=== PATIENT | male | born 1960 | race Caucasian/White ===

== ENCOUNTER 2021-01-31 19:41 | Inpatient (IN) ==
[2021-01-31] MEDS ORDERED: Ringers Solution, Lactated 1,000 ML IVC ONE (20:05)
[2021-01-31 21:10] LABS: Basophils % 0.3 %; Eosinophils % 0.1 %; Hematocrit 30.3 % (37.5-50.1); Hemoglobin 10.2 g/dL (12.9-16.9); Immature Granulocytes % 0.4 % (0-4); Lymphocytes # 2.5 K/mcL (0.6-4.6); Lymphocytes % 16.2 %; Mean Corpuscular HGB Conc 33.7 g/dL (31.6-35.5); Mean Corpuscular Hemoglobin 29.6 pg (28.0-33.3); Mean Corpuscular Volume 87.8 fL (83.0-100.0); Mean Platelet Volume 9.4 fL (9.4-12.4); Monocytes % 6.5 %; Neutrophils # 11.7 K/mcL (1.6-8.9); Platelet Count 267 K/mcL (140-400); Red Blood Count 3.45 M/mcL (4.19-5.50); Red Cell Distribution Width 14.2 % (11.5-14.5); Segmented Neutrophils % 76.5 %; White Blood Count 15.3 K/mcL (4.3-11.1)
[2021-01-31 21:20] LABS: INR 1.2; Prothrombin Time 13.8 Seconds (9.4-12.1)
[2021-01-31 21:33] LABS: Acetaminophen < 10 mcg/mL (10-20); Alanine Aminotransferase 11 Units/L (7-52); Albumin/Globulin Ratio 1.7 (1.1-2.2); Alkaline Phosphatase 53 Units/L (34-104); Aspartate Amino Transferase 15 Units/L (13-39); BUN/Creatinine Ratio 19 (6-26); Bilirubin,Direct 0.1 mg/dL (0.0-0.2); Bilirubin,Indirect 0.4 mg/dL (0.0-1.0); Bilirubin,Total 0.5 mg/dL (0.3-1.0); Blood Urea Nitrogen 18 mg/dL (8-23); Calcium 9.4 mg/dL (8.6-10.3); Carbon Dioxide 21 mEq/L (23-29); Chloride 102 mEq/L (98-107); Ethanol < 10 mg/dL (Less than 10); Globulin 2.3 g/dL (2.4-3.5); Glucose 93 mg/dL (70-105); Lipase 14 Units/L (11-82); Magnesium 1.8 mg/dL (1.6-2.6); Osmolality,Calculated 280 (280-300); Potassium 4.3 mEq/L (3.5-5.1); Salicylate < 2.5 mg/dL (15.0-30.0); Sodium 134 mEq/L (136-145); Total Protein 6.3 g/dL (6.4-8.9); Troponin I < 0.03 ng/mL (< 0.04); eGFR For African Americans > 60 (> 60); eGFR For Non-African Americans > 60 (> 60)
[2021-01-31] MEDS ORDERED: Ringers Solution, Lactated 500 ML IVC ONE (22:31)
[2021-01-31 22:37] LABS: Bilirubin,Urine Negative (Negative); Blood,Urine Negative (Negative); Clarity,Urine Clear (Clear); Color,Urine Yellow (Yellow); Glucose,Urine (UA) Normal (Normal); Granular Casts,Urine Few per lpf (None Seen); Ketones,Urine Trace mg/dL (Negative); Leukocyte Esterase,Urine Negative (Negative); Mucus,Urine Few per lpf (None-Few); Nitrite,Urine Negative (Negative); Protein,Urine 30 mg/dL (Neg-Trace); Specific Gravity,Urine 1.027 (1.010-1.025); Urobilinogen,Urine Normal (Normal); WBC,Urine 0-3 per hpf (0-3)
[2021-01-31 22:40] LABS: Amphetamine Screen,Urine Negative ng/mL (Cutoff=1000); Barbiturate Screen,Urine Negative ng/mL (Cutoff=200); Benzodiazepines Screen,Urine Negative ng/mL (Cutoff=200); Cannabinoid Screen,Urine Negative ng/mL (Cutoff = 50); Cocaine Screen,Urine Negative ng/mL (Cutoff= 300); Opiate Screen,Urine Negative ng/mL (Cutoff=300); Phencyclidine Screen,Urine Negative ng/mL (Cutoff=25)
[2021-01-31] MEDS ORDERED: Piperacillin/Tazobactam 3.375 GM in Water for inj. (sterile) 20 ML IVP ONE (23:00)
[2021-01-31] MEDS ORDERED: Vancomycin 1,500 MG/265 ML IV.SOLN IVPB ONE (23:00)
[2021-01-31 23:22] LABS: Adenovirus Not Detected (Not Detect); Bordetella Pertussis Not Detected (Not Detect); Chlamydophila pneumoniae Not Detected (Not Detect); Coronavirus 229E Not Detected (Not Detect); Coronavirus HKU1 Not Detected (Not Detect); Coronavirus NL63 Not Detected (Not Detect); Coronavirus OC43 Not Detected (Not Detect); Human Metapneumovirus Not Detected (Not Detect); Human Rhinovirus/Enterovirus Not Detected (Not Detect); Influenza A Subtype 2009 H1 Not Detected (Not Detect); Influenza B Not Detected (Not Detect); Mycoplasma pneumoniae Not Detected (Not Detect); Parainfluenza Virus 1 Not Detected (Not Detect); Parainfluenza Virus 2 Not Detected (Not Detect); Parainfluenza Virus 3 Not Detected (Not Detect); Parainfluenza Virus 4 Not Detected (Not Detect); Respiratory Syncytial Virus Not Detected (Not Detect); SARS-CoV-2 Not Detected (Not Detect)
[2021-02-01] MEDS ORDERED: Ondansetron 4 MG/2 ML VIAL IVP PRN (00:43)
[2021-02-01] MEDS ORDERED: Naloxone 0.4 MG/ML INJ IVP PRN (00:43)
[2021-02-01] MEDS ORDERED: Melatonin 3 MG TABLET PO PRN (00:43)
[2021-02-01] MEDS ORDERED: 0.9 % Sodium Chloride 1,000 ML IVC ONE (06:57)
[2021-02-01 07:15] LABS: Basophils % 0.4 %; Eosinophils % 0.5 %; Hematocrit 25.1 % (37.5-50.1); Hemoglobin 8.2 g/dL (12.9-16.9); Immature Granulocytes % 0.4 % (0-4); Lymphocytes # 2.1 K/mcL (0.6-4.6); Lymphocytes % 26.9 %; Mean Corpuscular HGB Conc 32.7 g/dL (31.6-35.5); Mean Corpuscular Hemoglobin 28.8 pg (28.0-33.3); Mean Corpuscular Volume 88.1 fL (83.0-100.0); Mean Platelet Volume 9.3 fL (9.4-12.4); Monocytes # 0.7 K/mcL (0.0-1.3); Monocytes % 8.8 %; Nucleated Red Blood Cells 0.3 /100 WBC (0); Platelet Count 192 K/mcL (140-400); Red Blood Count 2.85 M/mcL (4.19-5.50); Red Cell Distribution Width 14.2 % (11.5-14.5); White Blood Count 7.9 K/mcL (4.3-11.1)
[2021-02-01 09:56] LABS: Alanine Aminotransferase 9 Units/L (7-52); Albumin 3.4 g/dL (3.5-5.7); Albumin/Globulin Ratio 1.9 (1.1-2.2); Alkaline Phosphatase 43 Units/L (34-104); Aspartate Amino Transferase 15 Units/L (13-39); BUN/Creatinine Ratio 17 (6-26); Bilirubin,Total 0.4 mg/dL (0.3-1.0); Blood Urea Nitrogen 15 mg/dL (8-23); Calcium 8.4 mg/dL (8.6-10.3); Carbon Dioxide 22 mEq/L (23-29); Chloride 104 mEq/L (98-107); Globulin 1.8 g/dL (2.4-3.5); Glucose 100 mg/dL (70-105); Osmolality,Calculated 279 (280-300); Phosphorous 2.7 mg/dL (2.7-4.5); Potassium 3.5 mEq/L (3.5-5.1); Sodium 134 mEq/L (136-145); Total Protein 5.2 g/dL (6.4-8.9); eGFR For African Americans > 60 (> 60); eGFR For Non-African Americans > 60 (> 60)
[2021-02-01] MEDS ORDERED: Artificial Tears SOLN 15 ML BOTTLE BOTH EYES PRN (13:49)
[2021-02-01] MEDS ORDERED: NON-FORMULARY MEDICATION 1 EACH EACH (Ipratropium Bromide 15 ML Spray) SL SCH (21:00)
[2021-02-01] MEDS: polyethylene glycoL 3350 17 GM POWD.PACK PO SCH (21:53)
[2021-02-01] MEDS: Melatonin 3 MG TABLET PO SCH (21:53)
[2021-02-01] MEDS: Metoprolol XL (24 HR) Succ 25 MG TAB.ER.24H PO SCH (21:53)
[2021-02-01] MEDS: lamoTRIgine 100 MG TABLET PO SCH (21:54)
[2021-02-01] MEDS: lamoTRIgine 25 MG TABLET PO SCH (21:56)
[2021-02-01] MEDS: Artificial Tears SOLN 15 ML BOTTLE BOTH EYES SCH (21:56)
[2021-02-01] MEDS: Sennosides/Docusate Sodium TABLET PO SCH (21:57)
[2021-02-01] MEDS: cloZAPine 100 MG TABLET PO SCH (22:10)
[2021-02-02] MEDS ORDERED: Atropine 1% Opth Drops 100 DROP/5 ML BOTTLE SL PRN (02:15)
[2021-02-02] MEDS ORDERED: Tiotropium 10 INH DOSE IH ONE (07:21)
[2021-02-02] MEDS ORDERED: *HR* Metformin 500 MG TABLET PO SCH (08:00)
[2021-02-02] MEDS: Tiotropium 10 INH DOSE IH SCH (08:00)
[2021-02-02 08:10] LABS: BUN/Creatinine Ratio 18 (6-26); Blood Urea Nitrogen 16 mg/dL (8-23); Calcium 8.6 mg/dL (8.6-10.3); Carbon Dioxide 27 mEq/L (23-29); Chloride 105 mEq/L (98-107); Glucose 105 mg/dL (70-105); Osmolality,Calculated 282 (280-300); Potassium 4.2 mEq/L (3.5-5.1); Sodium 135 mEq/L (136-145); eGFR For African Americans > 60 (> 60); eGFR For Non-African Americans > 60 (> 60)
[2021-02-02 09:48] LABS: Hematocrit 22.1 % (37.5-50.1); Hemoglobin 7.3 g/dL (12.9-16.9); Mean Corpuscular Hemoglobin 29.6 pg (28.0-33.3); Mean Corpuscular Volume 89.5 fL (83.0-100.0); Mean Platelet Volume 9.8 fL (9.4-12.4); Platelet Count 166 K/mcL (140-400); Red Blood Count 2.47 M/mcL (4.19-5.50); Red Cell Distribution Width 14.3 % (11.5-14.5)
[2021-02-02] MEDS: Magnesium Oxide 400 MG TABLET PO SCH (10:03)
[2021-02-02] MEDS: Sennosides/Docusate Sodium TABLET PO SCH ×2 (10:03→20:21)
[2021-02-02] MEDS: Cholecalciferol (D-3) 1,000 UNIT (25MCG) TABLET PO SCH (10:03)
[2021-02-02] MEDS: polyethylene glycoL 3350 17 GM POWD.PACK PO SCH (10:03)
[2021-02-02] MEDS: cloZAPine 100 MG TABLET PO SCH ×2 (10:03→20:22)
[2021-02-02] MEDS: Artificial Tears SOLN 15 ML BOTTLE BOTH EYES SCH ×2 (10:07→20:29)
[2021-02-02] MEDS: Acetaminophen 325 MG TABLET PO PRN (10:36)
[2021-02-02] MEDS ORDERED: Dextrose Gel 15 GM/37.5 ML TUBE PO PRN ×2 (13:27)
[2021-02-02] MEDS ORDERED: D5% in Water 1,000 ML IVC PRN (13:27)
[2021-02-02] MEDS ORDERED: *HR* Dextrose 50 % in Water (Vial) 50 ML VIAL IVP PRN (13:27)
[2021-02-02] MEDS ORDERED: Tdap (Boostrix) Vaccine 0.5 ML SYRINGE IM ONE (13:32)
[2021-02-02 14:00] LABS: Basophils % 0.6 %; Eosinophils # 0.1 K/mcL (0.0-0.6); Eosinophils % 1.4 %; Hematocrit 21.8 % (37.5-50.1); Immature Granulocytes % 0.2 % (0-4); Lymphocytes % 40.3 %; Mean Corpuscular HGB Conc 32.1 g/dL (31.6-35.5); Mean Corpuscular Hemoglobin 28.7 pg (28.0-33.3); Mean Corpuscular Volume 89.3 fL (83.0-100.0); Mean Platelet Volume 9.4 fL (9.4-12.4); Monocytes # 0.5 K/mcL (0.0-1.3); Neutrophils # 2.4 K/mcL (1.6-8.9); Platelet Count 160 K/mcL (140-400); Red Blood Count 2.44 M/mcL (4.19-5.50); Red Cell Distribution Width 14.4 % (11.5-14.5); Segmented Neutrophils % 47.5 %
[2021-02-02] MEDS ORDERED: 0.9 % Sodium Chloride 250 ML IVC SCH (14:45)
[2021-02-02 15:27] LABS: Estimated Average Glucose 123 mg/dl; Hemoglobin A1C 5.9 %
[2021-02-02] MEDS: Insulin LISPRO 300 UNITS/3 ML VIAL SUBQ SCH ×2 (17:49→20:27)
[2021-02-02] MEDS: Metoprolol XL (24 HR) Succ 25 MG TAB.ER.24H PO SCH (17:49)
[2021-02-02] MEDS: Melatonin 3 MG TABLET PO SCH (20:23)
[2021-02-02] MEDS: lamoTRIgine 25 MG TABLET PO SCH (20:24)
[2021-02-02] MEDS: lamoTRIgine 100 MG TABLET PO SCH (20:26)
[2021-02-03 01:52] LABS: Hematocrit 23.7 % (37.5-50.1); Hemoglobin 7.8 g/dL (12.9-16.9); Mean Corpuscular HGB Conc 32.9 g/dL (31.6-35.5); Mean Corpuscular Hemoglobin 29.1 pg (28.0-33.3); Mean Corpuscular Volume 88.4 fL (83.0-100.0); Mean Platelet Volume 9.5 fL (9.4-12.4); Platelet Count 180 K/mcL (140-400); Red Blood Count 2.68 M/mcL (4.19-5.50); Red Cell Distribution Width 14.3 % (11.5-14.5); White Blood Count 6.4 K/mcL (4.3-11.1)
[2021-02-03 02:16] LABS: BUN/Creatinine Ratio 17 (6-26); Blood Urea Nitrogen 13 mg/dL (8-23); Calcium 8.7 mg/dL (8.6-10.3); Carbon Dioxide 25 mEq/L (23-29); Chloride 108 mEq/L (98-107); Glucose 112 mg/dL (70-105); Osmolality,Calculated 285 (280-300); Potassium 4.3 mEq/L (3.5-5.1); Sodium 137 mEq/L (136-145); eGFR For African Americans > 60 (> 60); eGFR For Non-African Americans > 60 (> 60)
[2021-02-03] MEDS: Tiotropium 10 INH DOSE IH SCH (07:27)
[2021-02-03] MEDS: Insulin LISPRO 300 UNITS/3 ML VIAL SUBQ SCH ×4 (07:54→20:46)
[2021-02-03] MEDS: Magnesium Oxide 400 MG TABLET PO SCH (08:57)
[2021-02-03] MEDS: Cholecalciferol (D-3) 1,000 UNIT (25MCG) TABLET PO SCH (08:57)
[2021-02-03] MEDS: Sennosides/Docusate Sodium TABLET PO SCH ×2 (08:57→20:35)
[2021-02-03] MEDS: cloZAPine 100 MG TABLET PO SCH (08:57)
[2021-02-03] MEDS: Artificial Tears SOLN 15 ML BOTTLE BOTH EYES SCH ×2 (08:58→20:38)
[2021-02-03] MEDS: Metoprolol XL (24 HR) Succ 25 MG TAB.ER.24H PO SCH (17:41)
[2021-02-03] MEDS: lamoTRIgine 100 MG TABLET PO SCH (20:36)
[2021-02-03] MEDS: Acetaminophen 325 MG TABLET PO PRN (20:37)
[2021-02-03] MEDS: lamoTRIgine 25 MG TABLET PO SCH (20:37)
[2021-02-03] MEDS: Melatonin 3 MG TABLET PO SCH (20:38)
[2021-02-04 07:16] LABS: Basophils % 0.6 %; Eosinophils # 0.1 K/mcL (0.0-0.6); Eosinophils % 1.7 %; Hematocrit 25.6 % (37.5-50.1); Hemoglobin 8.3 g/dL (12.9-16.9); Immature Granulocytes % 0.3 % (0-4); Lymphocytes # 1.9 K/mcL (0.6-4.6); Lymphocytes % 26.1 %; Mean Corpuscular HGB Conc 32.4 g/dL (31.6-35.5); Mean Corpuscular Volume 89.5 fL (83.0-100.0); Mean Platelet Volume 9.8 fL (9.4-12.4); Monocytes # 0.6 K/mcL (0.0-1.3); Monocytes % 8.1 %; Neutrophils # 4.5 K/mcL (1.6-8.9); Platelet Count 231 K/mcL (140-400); Red Blood Count 2.86 M/mcL (4.19-5.50); Red Cell Distribution Width 14.7 % (11.5-14.5); Segmented Neutrophils % 63.2 %; White Blood Count 7.2 K/mcL (4.3-11.1)
[2021-02-04] MEDS: Insulin LISPRO 300 UNITS/3 ML VIAL SUBQ SCH ×4 (09:01→21:08)
[2021-02-04] MEDS: Cholecalciferol (D-3) 1,000 UNIT (25MCG) TABLET PO SCH (09:02)
[2021-02-04] MEDS: Sennosides/Docusate Sodium TABLET PO SCH ×2 (09:02→20:58)
[2021-02-04] MEDS: Magnesium Oxide 400 MG TABLET PO SCH (09:03)
[2021-02-04] MEDS: Artificial Tears SOLN 15 ML BOTTLE BOTH EYES SCH ×2 (09:04→20:57)
[2021-02-04] MEDS: Acetaminophen 325 MG TABLET PO PRN ×3 (09:11→20:58)
[2021-02-04] MEDS: Tiotropium 10 INH DOSE IH SCH (09:44)
[2021-02-04] MEDS: Metoprolol XL (24 HR) Succ 25 MG TAB.ER.24H PO SCH (18:22)
[2021-02-04] MEDS: lamoTRIgine 100 MG TABLET PO SCH (20:57)
[2021-02-04] MEDS: Melatonin 3 MG TABLET PO SCH (20:59)
[2021-02-04] MEDS: lamoTRIgine 25 MG TABLET PO SCH (20:59)
[2021-02-05 06:41] LABS: Hematocrit 25.8 % (37.5-50.1); Hemoglobin 8.2 g/dL (12.9-16.9); Mean Corpuscular HGB Conc 31.8 g/dL (31.6-35.5); Mean Corpuscular Hemoglobin 28.7 pg (28.0-33.3); Mean Corpuscular Volume 90.2 fL (83.0-100.0); Mean Platelet Volume 9.8 fL (9.4-12.4); Platelet Count 244 K/mcL (140-400); Red Blood Count 2.86 M/mcL (4.19-5.50); Red Cell Distribution Width 14.6 % (11.5-14.5); White Blood Count 7.2 K/mcL (4.3-11.1)
[2021-02-05] MEDS: Tiotropium 10 INH DOSE IH SCH (07:29)
[2021-02-05] MEDS ORDERED: 0.9 % Sodium Chloride 250 ML IVC SCH (07:45)
[2021-02-05] MEDS: Insulin LISPRO 300 UNITS/3 ML VIAL SUBQ SCH ×4 (08:30→22:31)
[2021-02-05] MEDS: Magnesium Oxide 400 MG TABLET PO SCH (09:43)
[2021-02-05] MEDS: Cholecalciferol (D-3) 1,000 UNIT (25MCG) TABLET PO SCH (09:43)
[2021-02-05] MEDS: Artificial Tears SOLN 15 ML BOTTLE BOTH EYES SCH ×2 (09:44→22:31)
[2021-02-05] MEDS: Sennosides/Docusate Sodium TABLET PO SCH ×2 (09:50→22:30)
[2021-02-05] MEDS: Metoprolol XL (24 HR) Succ 25 MG TAB.ER.24H PO SCH (16:48)
[2021-02-05] MEDS ORDERED: 0.9 % Sodium Chloride 250 ML ONE (22:23)
[2021-02-05] MEDS: lamoTRIgine 100 MG TABLET PO SCH (22:27)
[2021-02-05] MEDS: Melatonin 3 MG TABLET PO SCH (22:30)
[2021-02-05] MEDS: lamoTRIgine 25 MG TABLET PO SCH (22:30)
[2021-02-06 03:17] LABS: Hematocrit 28.2 % (37.5-50.1); Hemoglobin 9.6 g/dL (12.9-16.9); Mean Corpuscular Volume 88.1 fL (83.0-100.0); Mean Platelet Volume 9.4 fL (9.4-12.4); Platelet Count 255 K/mcL (140-400); White Blood Count 9.2 K/mcL (4.3-11.1)
[2021-02-06] MEDS: Tiotropium 10 INH DOSE IH SCH (07:31)
[2021-02-06] MEDS: Artificial Tears SOLN 15 ML BOTTLE BOTH EYES SCH ×2 (08:39→20:08)
[2021-02-06] MEDS: Sennosides/Docusate Sodium TABLET PO SCH ×2 (08:39→20:09)
[2021-02-06] MEDS: Insulin LISPRO 300 UNITS/3 ML VIAL SUBQ SCH ×4 (08:39→20:10)
[2021-02-06] MEDS: Magnesium Oxide 400 MG TABLET PO SCH (08:39)
[2021-02-06] MEDS: Cholecalciferol (D-3) 1,000 UNIT (25MCG) TABLET PO SCH (08:39)
[2021-02-06] MEDS: Metoprolol XL (24 HR) Succ 25 MG TAB.ER.24H PO SCH (18:11)
[2021-02-06] MEDS: Melatonin 3 MG TABLET PO SCH (20:09)
[2021-02-06] MEDS: lamoTRIgine 100 MG TABLET PO SCH (20:09)
[2021-02-06] MEDS: lamoTRIgine 25 MG TABLET PO SCH (20:10)
[2021-02-07] MEDS: hydrOXYzine pamoate 25 MG CAPSULE PO PRN (05:26)
[2021-02-07 06:47] LABS: Hematocrit 30.1 % (37.5-50.1); Hemoglobin 9.7 g/dL (12.9-16.9); Mean Corpuscular HGB Conc 32.2 g/dL (31.6-35.5); Mean Corpuscular Hemoglobin 28.7 pg (28.0-33.3); Mean Corpuscular Volume 89.1 fL (83.0-100.0); Mean Platelet Volume 9.6 fL (9.4-12.4); Platelet Count 312 K/mcL (140-400); Red Blood Count 3.38 M/mcL (4.19-5.50); White Blood Count 11.3 K/mcL (4.3-11.1)
[2021-02-07 07:32] LABS: Influenza A PCR Negative (Negative); Influenza B PCR Negative (Negative); Resp. Syncytial Virus PCR Negative (Negative)
[2021-02-07] MEDS: Tiotropium 10 INH DOSE IH SCH (07:35)
[2021-02-07 08:00] LABS: BUN/Creatinine Ratio 23 (6-26); Blood Urea Nitrogen 19 mg/dL (8-23); Calcium 9.1 mg/dL (8.6-10.3); Carbon Dioxide 25 mEq/L (23-29); Chloride 101 mEq/L (98-107); Glucose 107 mg/dL (70-105); Osmolality,Calculated 279 (280-300); Potassium 4.5 mEq/L (3.5-5.1); Sodium 133 mEq/L (136-145); eGFR For African Americans > 60 (> 60); eGFR For Non-African Americans > 60 (> 60)
[2021-02-07] MEDS: Insulin LISPRO 300 UNITS/3 ML VIAL SUBQ SCH ×4 (08:46→21:59)
[2021-02-07] MEDS: Cholecalciferol (D-3) 1,000 UNIT (25MCG) TABLET PO SCH (08:50)
[2021-02-07] MEDS: Magnesium Oxide 400 MG TABLET PO SCH (08:50)
[2021-02-07] MEDS: Sennosides/Docusate Sodium TABLET PO SCH ×2 (08:50→22:08)
[2021-02-07] MEDS: Artificial Tears SOLN 15 ML BOTTLE BOTH EYES SCH ×2 (08:50→22:08)
[2021-02-07 14:41] LABS: SARS-CoV-2 by PCR (In House) Negative (Negative)
[2021-02-07] MEDS: Metoprolol XL (24 HR) Succ 25 MG TAB.ER.24H PO SCH (16:59)
[2021-02-07] MEDS: lamoTRIgine 100 MG TABLET PO SCH (22:07)
[2021-02-07] MEDS: Melatonin 3 MG TABLET PO SCH (22:08)
[2021-02-07] MEDS: lamoTRIgine 25 MG TABLET PO SCH (22:08)
[2021-02-08] MEDS ORDERED: *HR* LORazepam 2 MG/ML VIAL IVP ONE (05:22)
[2021-02-08] MEDS: Sennosides/Docusate Sodium TABLET PO SCH ×2 (07:32→21:21)
[2021-02-08] MEDS: Cholecalciferol (D-3) 1,000 UNIT (25MCG) TABLET PO SCH (07:32)
[2021-02-08] MEDS: Magnesium Oxide 400 MG TABLET PO SCH (07:32)
[2021-02-08] MEDS: Insulin LISPRO 300 UNITS/3 ML VIAL SUBQ SCH ×4 (07:36→21:23)
[2021-02-08] MEDS: Artificial Tears SOLN 15 ML BOTTLE BOTH EYES SCH ×2 (07:39→21:23)
[2021-02-08] MEDS: Tiotropium 10 INH DOSE IH SCH (07:39)
[2021-02-08 07:43] LABS: Hematocrit 28.7 % (37.5-50.1); Hemoglobin 9.3 g/dL (12.9-16.9); Mean Corpuscular HGB Conc 32.4 g/dL (31.6-35.5); Mean Corpuscular Hemoglobin 28.6 pg (28.0-33.3); Mean Corpuscular Volume 88.3 fL (83.0-100.0); Mean Platelet Volume 9.5 fL (9.4-12.4); Platelet Count 292 K/mcL (140-400); Red Blood Count 3.25 M/mcL (4.19-5.50); Red Cell Distribution Width 13.8 % (11.5-14.5); White Blood Count 10.1 K/mcL (4.3-11.1)
[2021-02-08 07:59] LABS: BUN/Creatinine Ratio 26 (6-26); Blood Urea Nitrogen 22 mg/dL (8-23); Carbon Dioxide 25 mEq/L (23-29); Chloride 102 mEq/L (98-107); Glucose 114 mg/dL (70-105); Osmolality,Calculated 280 (280-300); Potassium 4.4 mEq/L (3.5-5.1); Sodium 133 mEq/L (136-145); eGFR For African Americans > 60 (> 60); eGFR For Non-African Americans > 60 (> 60)
[2021-02-08] MEDS ORDERED: OLANZapine 10 MG TAB.RAPDIS PO ONE (11:03)
[2021-02-08] MEDS: Acetaminophen 325 MG TABLET PO PRN (12:57)
[2021-02-08] MEDS: Metoprolol XL (24 HR) Succ 25 MG TAB.ER.24H PO SCH (17:39)
[2021-02-08 18:03] LABS: Bilirubin,Urine Negative (Negative); Blood,Urine Negative (Negative); Clarity,Urine Clear (Clear); Color,Urine Yellow (Yellow); Glucose,Urine (UA) Normal (Normal); Ketones,Urine Negative (Negative); Leukocyte Esterase,Urine Negative (Negative); Nitrite,Urine Negative (Negative); PH,Urine 6.5 pH Units (5.0-8.0); Protein,Urine Trace mg/dL (Neg-Trace); Specific Gravity,Urine 1.026 (1.010-1.025); Urobilinogen,Urine Normal (Normal)
[2021-02-08] MEDS: Melatonin 3 MG TABLET PO SCH (21:22)
[2021-02-08] MEDS: lamoTRIgine 100 MG TABLET PO SCH (21:22)
[2021-02-08] MEDS: lamoTRIgine 25 MG TABLET PO SCH (21:22)
[2021-02-08] MEDS: OLANZapine 10 MG TAB.RAPDIS PO SCH (21:22)
[2021-02-09] MEDS: hydrOXYzine pamoate 25 MG CAPSULE PO PRN (04:15)
[2021-02-09] MEDS: Insulin LISPRO 300 UNITS/3 ML VIAL SUBQ SCH ×4 (07:48→22:50)
[2021-02-09] MEDS: Magnesium Oxide 400 MG TABLET PO SCH (08:21)
[2021-02-09] MEDS: Sennosides/Docusate Sodium TABLET PO SCH ×2 (08:21→22:50)
[2021-02-09] MEDS: Cholecalciferol (D-3) 1,000 UNIT (25MCG) TABLET PO SCH (08:21)
[2021-02-09] MEDS: OLANZapine 10 MG TAB.RAPDIS PO SCH ×2 (08:22→22:50)
[2021-02-09] MEDS: Artificial Tears SOLN 15 ML BOTTLE BOTH EYES SCH ×2 (08:22→22:49)
[2021-02-09] MEDS: Tiotropium 10 INH DOSE IH SCH (10:59)
[2021-02-09] MEDS: Metoprolol XL (24 HR) Succ 25 MG TAB.ER.24H PO SCH (16:55)
[2021-02-09] MEDS: lamoTRIgine 25 MG TABLET PO SCH (22:48)
[2021-02-09] MEDS: lamoTRIgine 100 MG TABLET PO SCH (22:49)
[2021-02-09] MEDS: Melatonin 3 MG TABLET PO SCH (22:49)
[2021-02-10 03:39] LABS: Hematocrit 27.8 % (37.5-50.1); Hemoglobin 9.5 g/dL (12.9-16.9); Mean Corpuscular HGB Conc 34.2 g/dL (31.6-35.5); Mean Corpuscular Hemoglobin 29.6 pg (28.0-33.3); Mean Corpuscular Volume 86.6 fL (83.0-100.0); Mean Platelet Volume 9.3 fL (9.4-12.4); Platelet Count 342 K/mcL (140-400); Red Blood Count 3.21 M/mcL (4.19-5.50); Red Cell Distribution Width 13.4 % (11.5-14.5); White Blood Count 8.8 K/mcL (4.3-11.1)
[2021-02-10 03:58] LABS: BUN/Creatinine Ratio 28 (6-26); Blood Urea Nitrogen 23 mg/dL (8-23); Carbon Dioxide 24 mEq/L (23-29); Chloride 102 mEq/L (98-107); Glucose 128 mg/dL (70-105); Osmolality,Calculated 281 (280-300); Potassium 4.2 mEq/L (3.5-5.1); Sodium 133 mEq/L (136-145); eGFR For African Americans > 60 (> 60); eGFR For Non-African Americans > 60 (> 60)
[2021-02-10] MEDS: Cholecalciferol (D-3) 1,000 UNIT (25MCG) TABLET PO SCH (08:23)
[2021-02-10] MEDS: Magnesium Oxide 400 MG TABLET PO SCH (08:24)
[2021-02-10] MEDS: Sennosides/Docusate Sodium TABLET PO SCH ×2 (08:24→20:17)
[2021-02-10] MEDS: OLANZapine 10 MG TAB.RAPDIS PO SCH ×2 (08:24→20:16)
[2021-02-10] MEDS: Artificial Tears SOLN 15 ML BOTTLE BOTH EYES SCH ×2 (08:25→20:21)
[2021-02-10] MEDS: Insulin LISPRO 300 UNITS/3 ML VIAL SUBQ SCH ×4 (08:32→20:18)
[2021-02-10] MEDS: Tiotropium 10 INH DOSE IH SCH (11:44)
[2021-02-10] MEDS: Metoprolol XL (24 HR) Succ 25 MG TAB.ER.24H PO SCH (16:56)
[2021-02-10] MEDS: lamoTRIgine 100 MG TABLET PO SCH (20:16)
[2021-02-10] MEDS: lamoTRIgine 25 MG TABLET PO SCH (20:17)
[2021-02-10] MEDS: Melatonin 3 MG TABLET PO SCH (20:17)
[2021-02-10] MEDS: hydrOXYzine pamoate 25 MG CAPSULE PO PRN (21:55)
[2021-02-11 06:02] LABS: Hematocrit 29.5 % (37.5-50.1); Hemoglobin 9.5 g/dL (12.9-16.9); Mean Corpuscular HGB Conc 32.2 g/dL (31.6-35.5); Mean Corpuscular Hemoglobin 28.4 pg (28.0-33.3); Mean Corpuscular Volume 88.3 fL (83.0-100.0); Mean Platelet Volume 9.3 fL (9.4-12.4); Platelet Count 311 K/mcL (140-400); Red Blood Count 3.34 M/mcL (4.19-5.50); Red Cell Distribution Width 13.6 % (11.5-14.5); White Blood Count 7.4 K/mcL (4.3-11.1)
[2021-02-11] MEDS: Sennosides/Docusate Sodium TABLET PO SCH ×2 (07:13→19:48)
[2021-02-11] MEDS: Cholecalciferol (D-3) 1,000 UNIT (25MCG) TABLET PO SCH (07:13)
[2021-02-11] MEDS: Magnesium Oxide 400 MG TABLET PO SCH (07:13)
[2021-02-11] MEDS: OLANZapine 10 MG TAB.RAPDIS PO SCH ×2 (07:14→19:49)
[2021-02-11] MEDS: Artificial Tears SOLN 15 ML BOTTLE BOTH EYES SCH ×2 (07:16→19:52)
[2021-02-11] MEDS: Insulin LISPRO 300 UNITS/3 ML VIAL SUBQ SCH ×4 (07:19→20:03)
[2021-02-11] MEDS: Tiotropium 10 INH DOSE IH SCH (09:47)
[2021-02-11] MEDS: Metoprolol XL (24 HR) Succ 25 MG TAB.ER.24H PO SCH (17:23)
[2021-02-11] MEDS: lamoTRIgine 100 MG TABLET PO SCH (19:48)
[2021-02-11] MEDS: lamoTRIgine 25 MG TABLET PO SCH (19:48)
[2021-02-11] MEDS: Melatonin 3 MG TABLET PO SCH (19:48)
[2021-02-12] MEDS: Tiotropium 10 INH DOSE IH SCH (08:11)
[2021-02-12] MEDS: Sennosides/Docusate Sodium TABLET PO SCH ×2 (08:49→19:32)
[2021-02-12] MEDS: Cholecalciferol (D-3) 1,000 UNIT (25MCG) TABLET PO SCH (08:49)
[2021-02-12] MEDS: Magnesium Oxide 400 MG TABLET PO SCH (08:49)
[2021-02-12] MEDS: Artificial Tears SOLN 15 ML BOTTLE BOTH EYES SCH ×2 (08:49→19:37)
[2021-02-12] MEDS: OLANZapine 10 MG TAB.RAPDIS PO SCH ×2 (08:50→19:32)
[2021-02-12] MEDS: Insulin LISPRO 300 UNITS/3 ML VIAL SUBQ SCH ×4 (08:51→19:40)
[2021-02-12] MEDS: Metoprolol XL (24 HR) Succ 25 MG TAB.ER.24H PO SCH (17:09)
[2021-02-12] MEDS: Melatonin 3 MG TABLET PO SCH (19:32)
[2021-02-12] MEDS: lamoTRIgine 25 MG TABLET PO SCH (19:32)
[2021-02-12] MEDS: lamoTRIgine 100 MG TABLET PO SCH (19:32)
[2021-02-13] MEDS: Tiotropium 10 INH DOSE IH SCH (07:37)
[2021-02-13] MEDS: Insulin LISPRO 300 UNITS/3 ML VIAL SUBQ SCH ×4 (09:28→20:57)
[2021-02-13] MEDS: Cholecalciferol (D-3) 1,000 UNIT (25MCG) TABLET PO SCH (11:22)
[2021-02-13] MEDS: Sennosides/Docusate Sodium TABLET PO SCH ×2 (11:24→20:49)
[2021-02-13] MEDS: Magnesium Oxide 400 MG TABLET PO SCH (11:25)
[2021-02-13] MEDS: OLANZapine 10 MG TAB.RAPDIS PO SCH ×2 (11:25→20:50)
[2021-02-13] MEDS: Artificial Tears SOLN 15 ML BOTTLE BOTH EYES SCH (11:31)
[2021-02-13] MEDS ORDERED: OLANZapine 10 MG TAB.RAPDIS PO ONE (13:47)
[2021-02-13] MEDS: Metoprolol XL (24 HR) Succ 25 MG TAB.ER.24H PO SCH (17:25)
[2021-02-13] MEDS: Melatonin 3 MG TABLET PO SCH (20:49)
[2021-02-13] MEDS: lamoTRIgine 25 MG TABLET PO SCH (20:49)
[2021-02-13] MEDS: lamoTRIgine 100 MG TABLET PO SCH (20:50)
[2021-02-14] MEDS: Insulin LISPRO 300 UNITS/3 ML VIAL SUBQ SCH ×4 (09:18→21:07)
[2021-02-14] MEDS: Sennosides/Docusate Sodium TABLET PO SCH ×2 (09:58→21:07)
[2021-02-14] MEDS: OLANZapine 10 MG TAB.RAPDIS PO SCH ×2 (09:59→21:06)
[2021-02-14] MEDS: Cholecalciferol (D-3) 1,000 UNIT (25MCG) TABLET PO SCH (09:59)
[2021-02-14] MEDS: Magnesium Oxide 400 MG TABLET PO SCH (09:59)
[2021-02-14] MEDS: Tiotropium 10 INH DOSE IH SCH (10:45)
[2021-02-14] MEDS: Acetaminophen 325 MG TABLET PO PRN (13:42)
[2021-02-14] MEDS: hydrOXYzine pamoate 25 MG CAPSULE PO PRN (14:22)
[2021-02-14] MEDS: Metoprolol XL (24 HR) Succ 25 MG TAB.ER.24H PO SCH (17:18)
[2021-02-14] MEDS: lamoTRIgine 25 MG TABLET PO SCH (21:06)
[2021-02-14] MEDS: Melatonin 3 MG TABLET PO SCH (21:06)
[2021-02-14] MEDS: lamoTRIgine 100 MG TABLET PO SCH (21:06)
[2021-02-15] MEDS: hydrOXYzine pamoate 25 MG CAPSULE PO PRN (01:40)
[2021-02-15] MEDS: Tiotropium 10 INH DOSE IH SCH (07:27)
[2021-02-15] MEDS: Insulin LISPRO 300 UNITS/3 ML VIAL SUBQ SCH (07:53)
[2021-02-15] MEDS: Sennosides/Docusate Sodium TABLET PO SCH (08:09)
[2021-02-15] MEDS: Magnesium Oxide 400 MG TABLET PO SCH (08:10)
[2021-02-15] MEDS: Cholecalciferol (D-3) 1,000 UNIT (25MCG) TABLET PO SCH (08:10)
[2021-02-15] MEDS: OLANZapine 10 MG TAB.RAPDIS PO SCH (08:10)
[2021-02-15 09:34] LABS: Adenovirus Not Detected (Not Detect); Bordetella Pertussis Not Detected (Not Detect); Chlamydophila pneumoniae Not Detected (Not Detect); Coronavirus 229E Not Detected (Not Detect); Coronavirus HKU1 Not Detected (Not Detect); Coronavirus NL63 Not Detected (Not Detect); Coronavirus OC43 Not Detected (Not Detect); Human Metapneumovirus Not Detected (Not Detect); Human Rhinovirus/Enterovirus Not Detected (Not Detect); Influenza A Subtype 2009 H1 Not Detected (Not Detect); Influenza B Not Detected (Not Detect); Mycoplasma pneumoniae Not Detected (Not Detect); Parainfluenza Virus 1 Not Detected (Not Detect); Parainfluenza Virus 2 Not Detected (Not Detect); Parainfluenza Virus 3 Not Detected (Not Detect); Parainfluenza Virus 4 Not Detected (Not Detect); Respiratory Syncytial Virus Not Detected (Not Detect); SARS-CoV-2 Not Detected (Not Detect)
[2021-02-15 10:40] VITALS: BP 133/85; PULSE 83; TEMP 98.1; O2SAT 99
== END 2021-02-15 10:50 | DRG 885 ==
LOC: 2NENU 19:41 → EMEROOARM 19:41 → 2NENU 02-01 01:08 → SUATTDRO 02-01 15:10 → 3NENU 02-10 21:48
PROVIDERS: ADMIT Family Medicine; ATTEND Internal Medicine

== ENCOUNTER 2021-03-22 13:54 | Inpatient (IN) ==
[2021-03-22 14:47] LABS: Amphetamine Screen,Urine Negative ng/mL (Cutoff=1000); Barbiturate Screen,Urine Negative ng/mL (Cutoff=200); Benzodiazepines Screen,Urine Negative ng/mL (Cutoff=200); Cannabinoid Screen,Urine Negative ng/mL (Cutoff = 50); Cocaine Screen,Urine Negative ng/mL (Cutoff= 300); Opiate Screen,Urine Negative ng/mL (Cutoff=300); Phencyclidine Screen,Urine Negative ng/mL (Cutoff=25)
[2021-03-22 14:55] LABS: Bilirubin,Urine Negative (Negative); Blood,Urine Negative (Negative); Clarity,Urine Clear (Clear); Color,Urine Yellow (Yellow); Glucose,Urine (UA) Normal (Normal); Ketones,Urine 10 mg/dL (Negative); Leukocyte Esterase,Urine Negative (Negative); Mucus,Urine Moderate per lpf (None-Few); Nitrite,Urine Negative (Negative); Protein,Urine 100 mg/dL (Neg-Trace); Specific Gravity,Urine > 1.030 (1.010-1.025); Urobilinogen,Urine Normal (Normal)
[2021-03-22 15:10] LABS: Acetaminophen < 10 mcg/mL (10-20); BUN/Creatinine Ratio 22 (6-26); Blood Urea Nitrogen 17 mg/dL (8-23); Carbon Dioxide 25 mEq/L (23-29); Chloride 106 mEq/L (98-107); Chol/HDL Ratio 2.9 (0-4.9); Cholesterol 102 mg/dL (< 200); Ethanol < 10 mg/dL (Less than 10); Glucose 90 mg/dL (70-105); HDL Cholesterol 35 mg/dL (40-59); LDL Cholesterol,Calculated 48 mg/dL (< 100); Osmolality,Calculated 287 (280-300); Potassium 3.8 mEq/L (3.5-5.1); Salicylate < 2.5 mg/dL (15.0-30.0); Sodium 138 mEq/L (136-145); Triglycerides 93 mg/dL (< 150); eGFR For African Americans > 60 (> 60); eGFR For Non-African Americans > 60 (> 60)
[2021-03-22 15:25] LABS: Basophils % 0.4 %; Eosinophils % 0.3 %; Hemoglobin 9.5 g/dL (12.9-16.9); Immature Granulocytes % 0.3 % (0-4); Lymphocytes # 1.7 K/mcL (0.6-4.6); Lymphocytes % 22.2 %; Mean Corpuscular HGB Conc 31.7 g/dL (31.6-35.5); Mean Corpuscular Hemoglobin 25.7 pg (28.0-33.3); Mean Platelet Volume 9.8 fL (9.4-12.4); Monocytes # 0.5 K/mcL (0.0-1.3); Monocytes % 6.7 %; Neutrophils # 5.5 K/mcL (1.6-8.9); Platelet Count 340 K/mcL (140-400); Red Cell Distribution Width 15.9 % (11.5-14.5); Segmented Neutrophils % 70.1 %; White Blood Count 7.8 K/mcL (4.3-11.1)
[2021-03-22 15:26] LABS: Mean Corpuscular Volume 81.1 fL (83.0-100.0)
[2021-03-22 15:56] LABS: Estimated Average Glucose 114 mg/dl; Hemoglobin A1C 5.6 %
[2021-03-22] MEDS ORDERED: Artificial Tears SOLN 15 ML BOTTLE BOTH EYES STA (17:06)
[2021-03-22 17:55] LABS: Influenza A PCR Negative (Negative); Influenza B PCR Negative (Negative); Resp. Syncytial Virus PCR Negative (Negative)
[2021-03-22 18:09] LABS: SARS-CoV-2 by PCR (In House) Negative (Negative)
[2021-03-22] MEDS ORDERED: Mag Hydrox/Al Hydrox/Simeth 30 ML UDC PO PRN (22:33)
[2021-03-22] MEDS ORDERED: MOM Conc 10 ML UD.LIQ PO PRN (22:33)
[2021-03-22] MEDS ORDERED: *HR* LORazepam 1 MG TABLET PO PRN (22:33)
[2021-03-22] MEDS ORDERED: Haloperidol Lactate 5 MG/ML VIAL IM PRN (22:33)
[2021-03-22] MEDS ORDERED: haloperidoL 5 MG TABLET PO PRN (22:33)
[2021-03-22] MEDS ORDERED: *HR* LORazepam 2 MG/ML VIAL IM PRN (22:33)
[2021-03-22] MEDS ORDERED: hydrOXYzine pamoate 25 MG CAPSULE PO PRN (22:33)
[2021-03-22] MEDS ORDERED: traZODone 50 MG TABLET PO PRN (22:33)
[2021-03-22] MEDS ORDERED: TRAZODONE 50 MG PO SCH (23:00)
[2021-03-23] MEDS: Acetaminophen 325 MG TABLET PO SCH ×4 (00:54→20:19)
[2021-03-23] MEDS: Melatonin 3 MG TABLET PO SCH ×2 (00:54→20:19)
[2021-03-23] MEDS: *HR* Metformin 500 MG TABLET PO SCH ×3 (00:56→16:33)
[2021-03-23] MEDS: Sennosides/Docusate Sodium TABLET PO SCH ×3 (00:56→20:18)
[2021-03-23] MEDS: Metoprolol XL (24 HR) Succ 25 MG TAB.ER.24H PO SCH ×2 (00:56→18:09)
[2021-03-23] MEDS: *HR* LORazepam 1 MG TABLET PO SCH ×3 (00:57→20:19)
[2021-03-23] MEDS: Ziprasidone 20 MG CAPSULE PO SCH ×3 (00:57→20:20)
[2021-03-23] MEDS: Artificial Tears SOLN 15 ML BOTTLE BOTH EYES SCH ×3 (00:57→20:46)
[2021-03-23] MEDS: (Ipratropium Bromide 15 ML Spray) SL SCH ×2 (00:58→20:46)
[2021-03-23] MEDS ORDERED: lamoTRIgine 25 MG TABLET PO SCH (09:00)
[2021-03-23] MEDS: polyethylene glycoL 3350 17 GM POWD.PACK PO SCH (09:12)
[2021-03-23] MEDS: Divalproex (24 HR) 500 MG TABLET PO SCH (09:13)
[2021-03-23] MEDS: Multivit/Ca/Min/Fe/FA 1 TAB TABLET PO SCH (09:14)
[2021-03-23] MEDS: lamoTRIgine 100 MG TABLET PO SCH (09:14)
[2021-03-23] MEDS: Magnesium Oxide 400 MG TABLET PO SCH (09:14)
[2021-03-23] MEDS: VALBENAZINE TOSYLATE 40 MG PO SCH (09:17)
[2021-03-23] MEDS: Cholecalciferol (D-3) 1,000 UNIT (25MCG) TABLET PO SCH (10:26)
[2021-03-23] MEDS: Tiotropium 10 INH DOSE IH SCH (10:30)
[2021-03-23] MEDS: hydrOXYzine pamoate 25 MG CAPSULE PO PRN (16:36)
[2021-03-24] MEDS: Cholecalciferol (D-3) 1,000 UNIT (25MCG) TABLET PO SCH (09:16)
[2021-03-24] MEDS: *HR* Metformin 500 MG TABLET PO SCH ×2 (09:16→17:10)
[2021-03-24] MEDS: *HR* LORazepam 1 MG TABLET PO SCH ×2 (09:16→20:48)
[2021-03-24] MEDS: lamoTRIgine 100 MG TABLET PO SCH (09:16)
[2021-03-24] MEDS: Sennosides/Docusate Sodium TABLET PO SCH ×2 (09:17→20:48)
[2021-03-24] MEDS: Multivit/Ca/Min/Fe/FA 1 TAB TABLET PO SCH (09:17)
[2021-03-24] MEDS: Acetaminophen 325 MG TABLET PO SCH ×3 (09:17→20:48)
[2021-03-24] MEDS: Divalproex (24 HR) 500 MG TABLET PO SCH (09:18)
[2021-03-24] MEDS: Magnesium Oxide 400 MG TABLET PO SCH (09:18)
[2021-03-24] MEDS: polyethylene glycoL 3350 17 GM POWD.PACK PO SCH (09:18)
[2021-03-24] MEDS: Ziprasidone 20 MG CAPSULE PO SCH ×2 (09:18→20:48)
[2021-03-24] MEDS: Tiotropium 10 INH DOSE IH SCH (09:20)
[2021-03-24] MEDS: Artificial Tears SOLN 15 ML BOTTLE BOTH EYES SCH ×2 (09:21→20:59)
[2021-03-24] MEDS: VALBENAZINE TOSYLATE 40 MG PO SCH (09:32)
[2021-03-24] MEDS: hydrOXYzine pamoate 25 MG CAPSULE PO PRN ×3 (12:32→21:37)
[2021-03-24] MEDS: Metoprolol XL (24 HR) Succ 25 MG TAB.ER.24H PO SCH (17:11)
[2021-03-24] MEDS: Melatonin 3 MG TABLET PO SCH (20:48)
[2021-03-24] MEDS: (Ipratropium Bromide 15 ML Spray) SL SCH (21:06)
[2021-03-25] MEDS: hydrOXYzine pamoate 25 MG CAPSULE PO PRN ×2 (06:38→12:01)
[2021-03-25] MEDS: Tiotropium 10 INH DOSE IH SCH (08:44)
[2021-03-25] MEDS: polyethylene glycoL 3350 17 GM POWD.PACK PO SCH (08:44)
[2021-03-25] MEDS: Artificial Tears SOLN 15 ML BOTTLE BOTH EYES SCH (08:44)
[2021-03-25] MEDS: Multivit/Ca/Min/Fe/FA 1 TAB TABLET PO SCH (08:45)
[2021-03-25] MEDS: Acetaminophen 325 MG TABLET PO SCH ×2 (08:45→15:14)
[2021-03-25] MEDS: Sennosides/Docusate Sodium TABLET PO SCH (08:45)
[2021-03-25] MEDS: Magnesium Oxide 400 MG TABLET PO SCH (08:45)
[2021-03-25] MEDS: *HR* Metformin 500 MG TABLET PO SCH (08:45)
[2021-03-25] MEDS: Cholecalciferol (D-3) 1,000 UNIT (25MCG) TABLET PO SCH (08:46)
[2021-03-25] MEDS: Ziprasidone 20 MG CAPSULE PO SCH (08:46)
[2021-03-25] MEDS: *HR* LORazepam 1 MG TABLET PO SCH (08:46)
[2021-03-25] MEDS: Divalproex (24 HR) 500 MG TABLET PO SCH (08:46)
[2021-03-25] MEDS: lamoTRIgine 100 MG TABLET PO SCH (08:46)
[2021-03-25] MEDS: VALBENAZINE TOSYLATE 40 MG PO SCH (08:47)
[2021-03-25 10:38] VITALS: BP 125/80; PULSE 73; TEMP 98.4; O2SAT 97
== END 2021-03-25 15:45 | disposition hospice, home (50) | DRG 885 ==
LOC: EMEROOARM 13:54 → 1ANU 22:31
PROVIDERS: ADMIT Psychiatry & Neurology Psychiatry; ATTEND Psychiatry & Neurology Psychiatry